=== PATIENT | female | born 1995 | race African-American/Black ===

== ENCOUNTER 2018-05-06 23:25 | Emergency (ER) | payer SELFPAY ==
[2018-05-06] MEDS ORDERED: Bacitracin Zinc 1 Packet ONE (23:52)
[2018-05-06] MEDS ORDERED: Adacel (T-DAP) 0.5 ML VIAL ONE (23:52)
== END 2018-05-07 00:35 | disposition home or self-care (01) ==
LOC: ERS 23:25
DX: S80.811A Abrasion, right lower leg, initial encounter (principal); R51 Headache; F17.210 Nicotine dependence, cigarettes, uncomplicated; Y04.2XXA Assault by strike against or bumped into by another person, initial encounter
CPT/HCPCS: 90715; 99284